=== PATIENT | female | born 1990 | race Caucasian/White ===

== ENCOUNTER → 2020-07-10 14:23 | Outpatient (BNVA) | payer MEDICAID, SELFPAY | PROVIDERS: Visit Provider Obstetrics & Gynecology | DX: Z34.80 Encounter for supervision of other normal pregnancy, unspecified trimester (principal) | CPT/HCPCS: 84315; 87081 ==

== ENCOUNTER → 2020-07-26 15:02 | Outpatient (BNVA) | payer MEDICAID, SELFPAY | PROVIDERS: Visit Provider Obstetrics & Gynecology | DX: Z34.90 Encounter for supervision of normal pregnancy, unspecified, unspecified trimester (principal); Z20.822 Contact with and (suspected) exposure to COVID-19 | CPT/HCPCS: 87635 ==

== ENCOUNTER 2020-08-01 06:54 | Inpatient (IN) | payer MEDICAID, SELFPAY ==
--- NOTE | 2020-07-10 15:28 | ANES.PREANE2 ---
Pre-Anesthetic Assessment Pre-Anesthetic Assessment: Height/Weight: Height 1.8 m Proposed Procedure: Operation Date: 08/01/20 07:20 Proposed Procedures p Section Repeat 78144 Z98.891(Not Applicable) - Jana Calero MD Was Beta Sebastian taken within 24 hours: N/A Social: Social History: No alcohol and No tobacco Exam: Pre-Anes Outpt Exam: alert, oriented x 3, clear to auscultation bilaterally and regular rate & rhythm Airway: Submandibular: WNL Cervical ROM: WNL MP: 2 Dentition: Full History/ROS: No significant history except as noted Anesthetic Plan: ASA status: 2 Other: SAB Risk of > 500 ml blood loss (7ml/kg in children): Yes, adequate IV access and fluids planned PFSH Anesthesia PFSH: Medical History HSV (herpes simplex virus) infection Surgical History Previous section Family History Father Asthma Hypertension Grandfather Cancer paternal, bone cancer Grandmother Breast cancer paternal Cardiovascular disease paternal Heart failure paternal Stroke maternal Mother Hyperlipidemia Family/Other Uterine cancer Denies family history of Diabetes Ovarian cyst Chronic kidney disease (CKD) Anesthesia complication Bleeding disorder Social History (Updated 07/10/20 @ 14:35 by ASAD Melton) Smoking and tobacco status: former smoker Alcohol intake: former Substance/Drug Use: never Data Anesthesia Cardiac Studies: No Data to Display
[2020-08-01] VITALS (29 sets, daily range): BP systolic 102–129; BP diastolic 58–85; PULSE 56–150; RESP 15–50; TEMP 36.2–37; O2SAT 98–100; BMI 35.8
[2020-08-01 07:22] LABS: Basophils % 0.4 %; Eosinophils # 0.2 10^3/uL (0.0-0.8); Eosinophils % 2.1 %; Hemoglobin 9.8 g/dL (11.5-15.3); Lymphocytes # 2.5 10^3/uL (0.8-4.8); Lymphocytes % 24.6 %; Mean Corpuscular HGB Conc 31.6 g/dL (30.0-36.0); Mean Corpuscular Hemoglobin 26.5 pg (28.0-34.0); Mean Corpuscular Volume 83.8 fL (81-99); Mean Platelet Volume 11.8 fL (7.4-10.4); Monocytes # 0.7 10^3/uL (0.2-0.9); Monocytes % 6.8 %; Neutrophils # 6.56 10^3/uL (1.8-7.7); Neutrophils % 65.4 %; Nucleated Red Blood Cells % 0 %; Platelet Count 196 10^3/cmm (130-400); Red Cell Distribution Width 14.3 % (12.1-15.1)
[2020-08-01] MEDS: lactated ringers 1,000 ML 999 ML IV (07:25)
[2020-08-01] MEDS: citric acid-sodium citrate 30 mL UDC PO (07:26)
[2020-08-01] MEDS: metoclopramide 5 mg/mL SDV 2 mL 10 MG IVP (07:27)
[2020-08-01] MEDS: famotidine 20 mg/2 mL INJ IVP (07:27)
--- NOTE | 2020-08-01 08:07 | W.PM.OPSUD ---
Surgery/Procedure H&P Update DATE OF PROCEDURE: August 01, 2020 DATE H&P PERFORMED: 07/30/20 H&P UPDATE INFORMATION: I have reviewed H&P completed within last 30 days, I have examined patient prior to procedure and No changes to prior documentation PLANNED PROCEDURE: Operation Date: 08/01/20 08:30 Proposed Procedures p Section Repeat 29299 Z98.891(Not Applicable) - Jana Calero MD
--- NOTE | 2020-08-01 08:23 | P.ANESUD_ITS ---
Pre-Anesthetic Update Pre-Anesthetic Assessment: Date of Surgery/Procedure: 08/01/20 Proposed Procedure: Operation Date: 08/01/20 08:30 Proposed Procedures p Section Repeat 27370 Z98.891(Not Applicable) - Jana Calero MD Any changes to Pre-Anesthetic Assessment?: No Last Intake: Intake Last Liquid Date 08/01/20 Last Liquid Time 00:00 Last Solid Date 08/01/20 Last Solid Time 00:00 Labs Last 48hrs: Laboratory Results - last 48 hr 08/01/20 07:10 WBC 10.0 RBC 3.70 L Hgb 9.8 L Hct 31.0 L MCV 83.8 MCH 26.5 L MCHC 31.6 RDW 14.3 Plt Count 196 MPV 11.8 H Neut % (Auto) 65.4 Lymph % (Auto) 24.6 [place] % (Auto) 6.8 Eos % (Auto) 2.1 Baso % (Auto) 0.4 Neut # (Auto) 6.56 Lymph # (Auto) 2.5 [place] # (Auto) 0.7 Eos # (Auto) 0.2 Baso # (Auto) 0.0 Nucleated RBC % (a uto) 0 Nucleated RBCs # 0.0 Vitals: Temperature 98.2 F 08/01/20 07:03 Pulse Rate 112 H 08/01/20 08:18 Pulse Rhythm 08/01/20 07:15 Pulse Strength 3+ Normal 08/01/20 07:15 Respiratory Effort Non-Labored 08/01/20 07:15 Respiratory Depth Normal 08/01/20 07:15 Respiratory Patter n 08/01/20 07:15 Blood Pressure 102/85 08/01/20 08:18 Oxygen Delivery Me thod 08/01/20 07:15 Exam: Pre-Anes Outpt Exam: alert, oriented x 3, clear to auscultation bilaterally and regular rate & rhythm Cardiac Studies: No Data to Display
--- NOTE | 2020-08-01 09:51 | PM.OP ---
Operative Report Date of procedure: August 01, 2020 Pre-op Diagnosis: 2 previous , desires tubal ligation Post-op diagnosis: same Procedure Done: repeat with bilateral salpingectomy Specimens removed/disposition: bilateral fallopian tubes Surgeon: Jana Calero Couture Dressmaker: Jennifer Bahena Anesthesia: Other (spinal) Estimated blood loss (mL): 100 IV fluids (mL): 2,000 Urine output (mL): 200 Complications: none Findings: Term female in the ROP presentation Condition: stable Disposition: PACU Brief History: The patient is a at 39 2/7 weeks who presented for scheduled repeat with bilateral salpingectomy Procedure: The patient was taken to the operating room where spinal anesthesia was administered and found to be adequate. She was prepped and draped in the normal sterile fashion in the dorsal supine position with a leftward tilt. A timeout was performed confirming proper patient and proper procedure. A Pfannenstiel skin incision was made and carried down to the underlying fascia. The fascia was nicked in the midline and the and the incision extended laterally with the Gomez scissors. The fascia was then tented up and the rectus muscles dissected off sharply. The peritoneum was entered with the digit. The peritoneal incision was extended superiorly and inferiorly with good visualization of the bladder. The Shaq-O retractor was placed. The bladder flap was created sharply with the Metzenbaum scissors. The uterine incision was made. It was extended cephalocaudad. The bag of water was ruptured with an Allis clamp. The scalp was asked and brought through the incision. The nose and mouth were bulb suctioned. The remainder of the body delivered atraumatically and the baby was placed onto the mother's abdomen. The cord was clamped and cut and cord blood was obtained. The baby was moved to the warmer. Weight on baby was 8 pounds 9 ounces. 8 at 1 minute 9 at 5 minutes. The placenta was removed by expression. The uterus was cleaned of all clots and debris. The uterine incision was repaired with 0 Vicryl in a running fashion. A second imbricating layer was used to close the uterus. There was excellent hemostasis. The bladder flap was closed with 2-0 Monocryl in a running locked fashion. Attention was turned to the tubal ligation portion. The fallopian tube on the right was elevated and using the Vuoyant sealer the fallopian tube was cauterized and cut along the mesosalpinx, Until it was removed. The left fallopian tube was removed in a similar fashion. On the left there was some bleeding in the mesosalpinx and the tissue was brought together and the bleeding controlled. The uterus was replaced into the abdomen. The incision sites were inspected and found to be hemostatic. The peritoneum was closed with 2-0 Monocryl in a running fashion. The fascia was closed with 0 Vicryl in 2 separate sutures overlapping in the midline. The skin was closed with absorbable cesar. The patient tolerated the procedure well. Sponge lap and needle counts were correct x3. She was taken to the recovery room in stable condition.
[2020-08-01] MEDS: acyclovir 400 mg Tablet PO ×2 (15:20→21:51)
[2020-08-01] MEDS: ketorolac 30 mg/mL INJ IVP ×2 (15:21→21:51)
[2020-08-01] MEDS: dextrose 5%-lactated ringers 1,000 ML 125 ML IV (15:54)
--- NOTE | 2020-08-01 16:15 | PC.NURSE ---
1530 PT UP TO CHAIR DID VERY WELL, MINIMAL ASSISTANCE NEEDED
--- NOTE | 2020-08-01 17:03 | PC.NURSE ---
1645 PT UP AND WALKED 2 LAPS AROUND THE FLOOR, DID GREAT.
--- NOTE | 2020-08-01 18:10 | ANE.PACU2 ---
Inpatient post-anesthesia follow up: Airway intact: Yes Vital signs: Temperature 98.4 F Pulse Rate 82 Respiratory Rate 18 Blood Pressure 126/72 Pulse Oximetry 99 Oxygen Delivery Me thod Room Air Oxygen Flow Rate Fraction of Inspir ed Oxygen Hydration adequate: Yes Nausea and vomiting: No Pain level: 2 Mental status: Baseline
[2020-08-01 22:23] LABS: Hematocrit 29.1 % (37.0-47.0); Hemoglobin 9.2 g/dL (11.5-15.3); Mean Corpuscular HGB Conc 31.6 g/dL (30.0-36.0); Mean Corpuscular Hemoglobin 26.4 pg (28.0-34.0); Mean Corpuscular Volume 83.6 fL (81-99); Mean Platelet Volume 11.7 fL (7.4-10.4); Platelet Count 174 10^3/cmm (130-400); Red Blood Count 3.48 10^6/uL (4.1-5.3); Red Cell Distribution Width 14.3 % (12.1-15.1); White Blood Count 10.8 10^3/uL (4.0-10.0)
[2020-08-02 03:45] VITALS: BP 106/66; PULSE 88; RESP 16
[2020-08-02] MEDS: HYDROcodone-acetaminophen 5-325 mg Tablet PO ×2 (07:58→12:10)
[2020-08-02] MEDS: prenatal vitamin Capsule 1 CAP PO (07:58)
[2020-08-02] MEDS: docusate sodium 100 mg Capsule PO (07:59)
--- NOTE | 2020-08-02 09:38 | PM.DCS ---
Discharge Providers Date of Admission: 08/01/20 06:54 Date of Discharge: August 02, 2020 Attending Provider at Admission: Jana Calero MD Attending Provider at Discharge: Jana Calero MD Diagnoses at Discharge Discharge Diagnosis (1) Anxiety: Status: Acute (2) Normal : Status: Acute (3) Encounter for tubal ligation: Status: Acute (4) Previous delivery, delivered: Status: Acute Reason for Visit Reason for Visit: repeat c section/due date 08/06/20 Hospital Course Hospital Course The patient was admitted for repeat with tubal ligation. She did well postoperatively and was ready for discharge on day #1 POD#1 The patient is doing well this morning. She is ambulating. She is tolerating a regular diet. Her pain is well controlled. She is requesting discharge today. Physical Exam Const: COMMON NORMALS: no acute distress, average body habitus, patient oriented x3, no limitations, healthy appearing, alert and well nourished GENERAL APPEARANCE: cooperative, comfortable, well kempt and well developed ORIENTATION/CONSCIOUSNESS: Yes awake, Yes oriented to person, Yes oriented to place and Yes oriented to time Neck/C-Spine: COMMON NORMALS: full ROM and supple Resp: COMMON NORMALS: normal respiratory effort, No retractions and No use of accessory muscles EFFORT & INSPECTION: Yes able to speak in complete sentences GI: COMMON NORMALS: Soft to palpation and non-tender PALPATION: Yes Soft to palpation Extremity: COMMON NORMALS: no clubbing, cyanosis or edema Neuro: COMMON NORMALS: patient oriented x3 SENSORIUM/ORIENTATION: Yes alert, Yes oriented to person, Yes oriented to place and Yes oriented to time Psych: APPEARANCE: Yes well kempt Skin: WOUNDS: Yes surgical site (clean/dry and covered.) Urinary Catheter Management^: Fox: Cath Placed During This Visit: yes, but has since been removed by the nurse Reason for Continuing Indwelling Catheter: Decision to DC Catheter Urinary Catheter Date of Insertion: 08/01/20 Urinary Catheter Time of Insertion: 08:40 Date Urinary Catheter Removed: 08/01/20 Time Urinary Catheter Discontinued: 22:00 Discharge Data Data Completed and Pending: Pending at discharge Category Date Time Status Pathology: Surgic al [PTH] Stat Pth 08/01/20 10:48 Ordered Labs from last 24 hours 08/01/20 22:10 WBC 10.8 H RBC 3.48 L Hgb 9.2 L Hct 29.1 L MCV 83.6 MCH 26.4 L MCHC 31.6 RDW 14.3 Plt Count 174 MPV 11.7 H Vitals: Last Vital Signs Temp 97.9 F 08/01/20 18:15 Pulse 88 08/02/20 03:45 Resp 16 08/02/20 03:45 BP 106/66 08/02/20 03:45 Pulse Ox 98 08/01/20 18:15 Discharge Plan Discharge Patient Disposition: Home Condition: Stable Prescriptions: New hydrocodone-acetaminophen 5-325 mg Tablet 1 tab PO Q4H PRN (Reason: Moderate To Severe Pain) Qty: 30 RF: 0 Continued diphenhydramine HCl [Benadryl] 25 mg capsule 25 mg PO ONCE PRNRF: 0 citalopram 20 mg tablet 20 mg PO DAILY Qty: 60 RF: 6 PNV 55-iron fum,b-g-folic acid 28 mg iron -1 mg tablet,chewable 1 tab PO DAILY RF: 0 acyclovir 400 mg tablet 400 mg PO TID Qty: 90 RF: 2 Discharge Orders: Discharge Order (Routine); Ordered 08/02/20 Ordered By: Jana Calero Referrals: Jana Calero MD [Physician] - (FOLLOW UP WITH DR. NICOLAS 08/17/2020 AT 1PM. 6 WEEK FOLLOW UP 09/11/2020 AT 1245.) Discharge Attestations Time Spent in Discharge Care*: less than 30 min Specific Discharge Activities: documenting/other paperwork and evaluating patient/reviewing data Quality Metrics Clinical Quality Measures During this hospital stay, did patient experience: None Coding Level of Care Code Acute Chg FW DC note Diagnoses Anxiety F41.9 Normal Z34.90 Encounter for tubal ligation Z30.2 Previous delivery, delivered O34.219
[2020-08-02 10:35] VITALS: BP 114/82; PULSE 92; RESP 16; TEMP 36.8; O2SAT 97
== END 2020-08-02 12:15 | disposition home or self-care (01) | DRG 784 ==
PROVIDERS: Admitting Provider Obstetrics & Gynecology; Visit Provider Obstetrics & Gynecology
PROC: 10D00Z1 Extraction of Products of Conception, Low, Open Approach (ICD-10-PCS; CPT 59514; principal; 2020-08-01 08:30)
DX: O34.219 Maternal care for unspecified type scar from previous cesarean delivery (principal); O98.32 Other infections with a predominantly sexual mode of transmission complicating childbirth; Z3A.39 39 weeks gestation of pregnancy; Z37.0 Single live birth; A60.00 Herpesviral infection of urogenital system, unspecified; O99.344 Other mental disorders complicating childbirth; Z87.891 Personal history of nicotine dependence
CPT/HCPCS: 36415; 51702; 58611; 59025; 59409; 85025; 85027; 88302; 96374; 99211; J0690; J1885; J2250; J2274; J2370; J2405; J2765; J3010; J3490; J8499